=== PATIENT | female | born 1940 | race Two or more races ===

== ENCOUNTER 2023-11-21 14:27 | Outpatient (CLI) | payer OTHER | END 2023-11-21 15:00 | disposition home or self-care (01) | LOC: SONOGRAMA 14:27 | PROVIDERS: ATTEND Pathology Anatomic Pathology & Clinical Pathology | DX: D34 Benign neoplasm of thyroid gland (principal); E07.89 Other specified disorders of thyroid; E03.9 Hypothyroidism, unspecified ==